=== PATIENT | male | born 1990 | race Caucasian/White ===

== ENCOUNTER 2020-11-23 09:58 | Emergency (ER) | payer BC, MEDICAID ==
--- NOTE | 2020-11-23 11:14 | EDM.PDOC ---
ED HPI GENERAL MEDICAL PROBLEM - General Chief Complaint: Upper Extremity Injury/Pain Stated Complaint: LEFT HAND PAIN Time Seen by Provider: 11/23/20 11:05 Source of Information: Reports: Patient History Limitations: Reports: No Limitations - History of Present Illness INITIAL COMMENTS - FREE TEXT/NARRATIVE: Patient states he punched the dashboard his truck with his right hand yesterday about 8 PM states pain is gotten worse along with the swelling since the incident he rates his pain about a 6 out of 10 states he does have a history of having boxer fractures he denies any numbness or tingling or loss of sensation. Duration: Hour(s): Location: Reports: Upper Extremity, Right Severity: Moderate Improves with: Reports: None Worsens with: Reports: None Right Hand Pain Score (Numeric/FACES): 6 - Related Data Allergies Allergy/AdvReac Type Severity Reaction Status Date / Time pollen extracts Allergy Airway Verified 11/23/20 11:29 Tightness shellfish derived Allergy Anaphylactic Verified 11/23/20 11:29 Shock Home Meds: Home Meds . [No Known Home Meds] 11/23/20 [History] Review of Systems - Review of Systems Review Of Systems: See Below Constitutional: Reports: No Symptoms Cardiovascular: Reports: No Symptoms GI/Abdominal: Reports: No Symptoms Musculoskeletal: Reports: Hand Pain Skin: Reports: No Symptoms Neurological: Reports: No Symptoms Psychiatric: Reports: No Symptoms ED EXAM, GENERAL - Physical Exam Exam: See Below Exam Limited By: No Limitations General Appearance: Alert, WD/WN, No Apparent Distress Back Exam: Full Range of Motion Extremities: Normal Inspection, Normal Range of Motion, Other (Exam to the right hand patient is neurovascular intact strong radius and ulna cap refill patient has diffuse swelling across the third fourth fifth digit with tenderness to palpation across the fourth and fifth knuckle along with axial pain on the fourth and fifth he has positive FDS and FDP with normal extension he has normal abduction adduction and opposition). No: Non-Tender Neurological: Alert, Oriented, CN II-XII Intact, Normal Cognition, Normal Gait, No Motor/Sensory Deficits Psychiatric: Normal Affect, Normal Mood Skin Exam: Warm, Dry, Intact, Normal Color, No Rash Course - Vital Signs Text/Narrative:: A right hand series was ordered Patient has a boxer fracture over the fourth fifth metacarpal patient will be placed in a ulnar gutter splint ismael no OCL of right size splintted by my self recheck after NVI follow up with Ortho. Last Recorded V/S: Last Vital Signs Temp 36.7 C 11/23/20 11:00 Pulse 74 11/23/20 11:00 Resp 16 11/23/20 11:00 BP 117/77 11/23/20 11:00 Pulse Ox 98 11/23/20 11:00 - Orders/Labs/Meds Orders: Active Orders 24 hr Category Date Time Status Hand Comp Min 3V Rt [CR] Stat Exams 11/23/20 11:09 Taken Departure - Departure Time of Disposition: 11:45 Disposition: Home, Self-Care 01 Condition: Good Clinical Impression: Boxers fracture - Discharge Information *PRESCRIPTION DRUG MONITORING PROGRAM REVIEWED*: Not Applicable *COPY OF PRESCRIPTION DRUG MONITORING REPORT IN PATIENT RAFAT: Not Applicable Instructions: Boxer's Fracture Forms: ED Department Discharge Additional Instructions: Return to the emergency room if anything changes or gets worse Follow-up with DR Richard valladares DR tomorrow at 830 at [facility] You may apply ice to the area is much as tolerated usually 1 hour on 1 hour off over the next 3 to 4 days. You may take [id number] Tylenol Motrin as needed follow directions on the box Sepsis Event Note (ED) - Focused Exam Vital Signs: Vital Signs Temp Pulse Resp BP Pulse Ox 11/23/20 11:00 36.7 C 74 16 117/77 98 - Problem List & Annotations (1) Hand injury SNOMED Code(s): 369438203 Code(s): S69.90XA - UNSP INJURY OF UNSP WRIST, HAND AND FINGER(S), INIT ENCNTR Status: Acute (2) Boxers fracture SNOMED Code(s): 82129223 Code(s): S62.339A - DISP FX OF NECK OF UNSP METACARPAL BONE, INIT FOR CLOS FX Status: Acute - My Orders Last 24 Hours: My Active Orders 11/23/20 11:09 Hand Comp Min 3V Rt [CR] Stat - Assessment/Plan Last 24 Hours: My Active Orders 11/23/20 11:09 Hand Comp Min 3V Rt [CR] Stat
--- NOTE | 2020-11-23 11:57 | CR ---
[id number] RAD/RAD Hand Right 3V EXAM: RAD Hand Right 3V INDICATION: PUNCHED DASH IN TRUCK. COMPARISON: None. DISCUSSION: Subacute healing fractures of the fourth and fifth metacarpals. Both fractures demonstrate angulation resulting in shortening. Finding is more prominent in the fifth metacarpal. No dislocation. IMPRESSION: As above. Hector Gar MD 11/23/20 1266 Thank you for allowing us to participate in the care of your patient.
== END 2020-11-23 11:47 | disposition home or self-care (01) ==
LOC: VM.ED 09:58
DX: S62.334A Displaced fracture of neck of fourth metacarpal bone, right hand, initial encounter for closed fracture (principal); S62.336A Displaced fracture of neck of fifth metacarpal bone, right hand, initial encounter for closed fracture; Z91.048 Other nonmedicinal substance allergy status; Z91.013 Allergy to seafood; W22.8XXA Striking against or struck by other objects, initial encounter
CPT/HCPCS: 29125; 73130-RT; 99283; 99283-25

== ENCOUNTER 2020-12-10 19:50 | Emergency (ER) | payer MEDICAID ==
[2020-12-10] MEDS ORDERED: Oxymetazoline 0.05% Nasal Spray 30 ML Bottle NAS ONE (20:10)
[2020-12-10] MEDS ORDERED: predniSONE 20 MG Tab PO ONE (20:10)
--- NOTE | 2020-12-10 20:15 | EDM.PDOC ---
ED HPI GENERAL MEDICAL PROBLEM - General Chief Complaint: ENT Problem Stated Complaint: possible sinus infection Time Seen by Provider: 12/10/20 20:00 Source of Information: Reports: Patient History Limitations: Reports: No Limitations - History of Present Illness INITIAL COMMENTS - FREE TEXT/NARRATIVE: Patient comes emergency department today with complaints of ear pain headache sinus congestion and pressure. This patient for the past 5 to 7 days has had a severe frontal sinus headache pounding with pressure. He has had increased pressure in his ears. Quite a bit of sinus congestion and drainage. No fever no chills. He has tried some Sudafed without relief. No cough or congestion. No difficulty swallowing or breathing. No chest pain shortness of breath or difficulty breathing. No weakness dizziness lightheadedness. No confusion. No recent falls or head trauma. He usually gets a sinus infection once a year he relates. No COVID exposure no COVID symptoms otherwise. Sneezing as well itchy watery eyes and clear drainage from his eyes. Head Pain Score (Numeric/FACES): 9 - Related Data Allergies Allergy/AdvReac Type Severity Reaction Status Date / Time pollen extracts Allergy Airway Verified 11/23/20 11:29 Tightness shellfish derived Allergy Anaphylactic Verified 11/23/20 11:29 Shock Home Meds: Home Meds predniSONE [Prednisone] 60 mg PO DAILY #12 tablet 12/10/20 [Rx] Past Medical History HEENT History: Reports: Allergic Rhinitis - Past Surgical History Musculoskeletal Surgical History: Reports: Shoulder Surgery Social & Family History - Tobacco Use Tobacco Use Status *Q: Current Every Day Tobacco User Years of Tobacco use: 12 Packs/Tins Daily: 0.5 - Recreational Drug Use Recreational Drug Use: No ED ROS ENT - Review of Systems Review Of Systems: Comprehensive ROS is negative, except as noted in HPI. ED EXAM, ENT - Physical Exam Exam: See Below Exam Limited By: No Limitations General Appearance: Alert, WD/WN, No Apparent Distress Eye Exam: Bilateral Eye: Conjunctival Injection, EOMI, PERRL, Other (SClera is injected bilaterally and watery eyes. ) Ears: Normal External Exam, Normal Canal, Hearing Grossly Normal, Normal TMs Nose: Clear Rhinorrhea, Nasal Swelling, Injected Turbinates (His turbinates are very swollen and boggy. There is a large amount of clear rhinorrhea. His nasopharynx is absolutely full of his turbinates.) Mouth/Throat: Normal Inspection, Normal Gums, Normal Lips, Normal Oropharynx, Normal Teeth Head: Atraumatic, Normocephalic Neck: Normal Inspection, Supple, Non-Tender, Full Range of Motion Respiratory/Chest: No Respiratory Distress, Normal Breath Sounds, Chest Non- Tender Cardiovascular: Normal Peripheral Pulses, Regular Rate, Rhythm Extremities: Normal Inspection Neurological: Alert, Oriented, CN II-XII Intact, Normal Cognition, No Motor/Sensory Deficits Psychiatric: Normal Affect, Normal Mood Skin: Warm, Dry, Intact, Normal Color, No Rash Course - Vital Signs Last Recorded V/S: Last Vital Signs Temp 97.1 F 12/10/20 20:00 Pulse 61 12/10/20 20:00 Resp 16 12/10/20 20:00 BP 134/81 12/10/20 20:00 Pulse Ox 97 12/10/20 20:00 - Orders/Labs/Meds Orders: Active Orders 24 hr Category Date Time Status Oxymetazoline [Nasal Decongestant [place]] Med 12/10/20 20:10 Once 1 ml JENNIFER ONETIME ONE predniSONE Med 12/10/20 20:10 Once 60 mg PO ONETIME ONE - Re-Assessments/Exams Free Text/Narrative Re-Assessment/Exam: 12/10/20 20:21 Prednisone 60mg PO Afrin 2 sprays each nostril. Departure - Departure Time of Disposition: 20:11 Disposition: Home, Self-Care 01 Clinical Impression: Acute sinusitis Qualifiers: Sinusitis location: unspecified location Recurrence: not specified as recurrent Qualified Code(s): J01.90 - Acute sinusitis, unspecified - Discharge Information Instructions: Sinusitis, Adult, [id number], How to Perform a Sinus Rinse, [id number] Referrals: PCP,None [Primary Care Provider] - Additional Instructions: Afrin/Oxymetazoline 2 sprays each nostril twice daily for no more than 2 days. DO NOT USE MORE THAN 2 DAYS. 10 minutes later. OTC Nasal rinse like Netti Pot or other OTC nasal rinse. Continue until symptoms resolve and may continue to prevent acute sinusitis as well. 10 minutes later. Flonase, OTC, 1 spray each nostril twice daily for a week and then 1 spray each nostril daily. Continue until symptoms resolve and may continue to prevent symptoms in the future. Make sure and drink plenty of fluids. Prednisone 60mg daily for the next 5 days. First dose given in the ED and RX sent to [facility]. Tylenol and or Ibuprofen as needed for pain. May consider OTC Benadryl and or Zyrctec/Tiffany/Xyzal or systemic symptoms. Return to the ED if new or worsening symptoms. Follow up with PCP in the next 10 days if not improving sooner if worse. Sepsis Event Note (ED) - Evaluation Sepsis Screening Result: No Definite Risk - Focused Exam Vital Signs: Vital Signs Temp Pulse Resp BP Pulse Ox 12/10/20 20:00 97.1 F 61 16 134/81 97 - My Orders Last 24 Hours: My Active Orders 12/10/20 20:10 Oxymetazoline [Nasal Decongestant [place]] 1 ml JENNIFER ONETIME ONE predniSONE 60 mg PO ONETIME ONE - Assessment/Plan Last 24 Hours: My Active Orders 12/10/20 20:10 Oxymetazoline [Nasal Decongestant [place]] 1 ml JENNIFER ONETIME ONE predniSONE 60 mg PO ONETIME ONE
== END 2020-12-10 21:06 | disposition home or self-care (01) ==
LOC: VM.ED 19:50
DX: J01.90 Acute sinusitis, unspecified (principal); Z91.018 Allergy to other foods; Z91.09 Other allergy status, other than to drugs and biological substances; Z72.0 Tobacco use
CPT/HCPCS: 99282; 99283; A9270-GY; J7512

== ENCOUNTER 2021-07-24 00:50 | Emergency (ER) | payer MEDICAID ==
[2021-07-24] MEDS ORDERED: Diphtheria,Pertussis(Acell),Tetanus Vaccine 0.5 ML Syringe IM ONE (01:02)
--- NOTE | 2021-07-24 01:12 | EDM.PDOC ---
ED HPI GENERAL MEDICAL PROBLEM - General Chief Complaint: Laceration Stated Complaint: Laceration Time Seen by Provider: 07/24/21 00:50 Source of Information: Reports: Patient History Limitations: Reports: No Limitations - History of Present Illness INITIAL COMMENTS - FREE TEXT/NARRATIVE: With complaints of a laceration to his right hand. Patient states he was working on a car and his finger slipped and ended up cutting it on a piece of metal. He states he was able to control bleed prior to arrival by manual pressure and a napkin. Patient is unaware of his tetanus status. Patient states he does not have any concerns with range of motion or CMS. He states the finger is tender to touch but does not have any further concerns. Onset: Sudden Duration: Constant Location: Reports: Lower Extremity, Right Quality: Reports: Throbbing Severity: Moderate Improves with: Reports: Rest Worsens with: Reports: Movement Context: Reports: Activity Associated Symptoms: Reports: No Other Symptoms - Related Data Allergies Allergy/AdvReac Type Severity Reaction Status Date / Time pollen extracts Allergy Airway Verified 11/23/20 11:29 Tightness shellfish derived Allergy Anaphylactic Verified 11/23/20 11:29 Shock Home Meds: Home Meds predniSONE [Prednisone] 60 mg PO DAILY #12 tablet 12/10/20 [Rx] Past Medical History HEENT History: Reports: Allergic Rhinitis - Past Surgical History Musculoskeletal Surgical History: Reports: Shoulder Surgery ED ROS GENERAL - Review of Systems Review Of Systems: Comprehensive ROS is negative, except as noted in HPI. Constitutional: Reports: No Symptoms HEENT: Reports: No Symptoms Respiratory: Reports: No Symptoms Cardiovascular: Reports: No Symptoms Endocrine: Reports: No Symptoms GI/Abdominal: Reports: No Symptoms : Reports: No Symptoms Musculoskeletal: Reports: No Symptoms Skin: Reports: No Symptoms Neurological: Reports: No Symptoms Psychiatric: Reports: No Symptoms Hematologic/Lymphatic: Reports: No Symptoms Immunologic: Reports: No Symptoms ED EXAM, SKIN/RASH Exam: See Below Exam Limited By: No Limitations General Appearance: Alert, WD/WN, No Apparent Distress Head: Atraumatic, Normocephalic Respiratory/Chest: No Respiratory Distress, Lungs Clear, Chest Non-Tender Cardiovascular: Normal Peripheral Pulses, Regular Rate, Rhythm, No Edema Extremities: Normal Inspection, Normal Range of Motion, Non-Tender, Normal Capillary Refill Neurological: Alert, Oriented, CN II-XII Intact, Normal Gait Psychiatric: Normal Affect, Normal Mood Skin: Warm, Dry, Intact ED SKIN PROCEDURES - Laceration/Wound Repair Right Anterior Proximal Digit - 3rd (Middle) Appearance: Subcutaneous Distal NVT: Neuro & Vascular Intact, No Tendon Injury Anesthetic Type: Local Local Anesthesia - Lidocaine (Xylocaine): 1% Plain Local Anesthetic Volume: 3cc Skin Prep: Chlorhexidine (Hibiciens), Saline Closed with: Sutures Lac/Wound length In cm: 1 Suture Size: 4-0 # of Sutures: 3 Suture Type: Simple Drain Placement: No Sterile Dressing Applied: Nurse Tetanus Status Addressed: Yes Complications: No Course - Orders/Labs/Meds Orders: Active Orders 24 hr Category Date Time Status Lidocaine 1% [Xylocaine-MPF 1%] Med 07/24/21 01:01 Once 5 ml INJECT ONETIME ONE Departure - Departure Time of Disposition: 01:15 Disposition: Home, Self-Care 01 Condition: Good Clinical Impression: Laceration - Discharge Information *PRESCRIPTION DRUG MONITORING PROGRAM REVIEWED*: Not Applicable *COPY OF PRESCRIPTION DRUG MONITORING REPORT IN PATIENT RAFAT: Not Applicable Instructions: Laceration Care, Adult, Sutures, Haley, or Adhesive Wound Closure, [id number] Additional Instructions: 1. Rest 2. Keep the area clean and dry 3. Can use tylenol and ibuprofen as needed for pain and discomfort 4. Diet as tolerated 5. Activity as tolerated 6. Elevated the injured area above the level of the heart to decrease swelling and discomfort if applicable 7. Can use ice 3-4 times a day at 20-minute intervals to help with any swelling and discomfort 8. Follow-up with your primary care provider symptoms continue or to progress 9. Discharge information has been provided regarding your injury and wound care has been provided 10. Avoid an public pools or hot tubes until wound is healed. 11. Follow up in the Clinic in 10 days for removal of sutures - My Orders Last 24 Hours: My Active Orders 07/24/21 01:01 Lidocaine 1% [Xylocaine-MPF 1%] 5 ml INJECT ONETIME ONE - Assessment/Plan Last 24 Hours: My Active Orders 07/24/21 01:01 Lidocaine 1% [Xylocaine-MPF 1%] 5 ml INJECT ONETIME ONE Assessment:: 1. laceration right hand- 3rd digit Plan: 1. Wound cleansing completed 2. Laceration repair completed 3. Tdap vaccine history completed 4. Education regarding wound care, dressing changes, OTC medications, activity, diet, follow up care and when to seek care if warranted provided 5. Patient is to return to the clinic in 10 days to have sutures site evaluated and removed 6. Patient was encouraged to call or return if any questions or concerns arise.
== END 2021-07-24 01:19 | disposition home or self-care (01) ==
LOC: VM.ED 00:50
DX: S61.212A Laceration without foreign body of right middle finger without damage to nail, initial encounter (principal); Z91.030 Bee allergy status; Z91.09 Other allergy status, other than to drugs and biological substances; Z23 Encounter for immunization; W26.8XXA Contact with other sharp object(s), not elsewhere classified, initial encounter; Y99.0 Civilian activity done for income or pay
CPT/HCPCS: 12001; 90471; 90715; 99282-25; 99283

== ENCOUNTER 2021-10-30 22:54 | Emergency (ER) | payer MEDICAID ==
--- NOTE | 2021-10-30 23:37 | EDM.PDOC ---
ED HPI GENERAL MEDICAL PROBLEM - General Chief Complaint: Upper Extremity Injury/Pain Stated Complaint: BROKEN HAND Time Seen by Provider: 10/30/21 23:22 Source of Information: Reports: Patient History Limitations: Reports: No Limitations - History of Present Illness INITIAL COMMENTS - FREE TEXT/NARRATIVE: Pt. presents to ER with complaints of pain to R hand. Pt. states that he punched a fence post just prior to coming to ER. Pt. has a history of at least 2 previous Boxers fractures in the past, the last being in the spring which showed subacute healing fractures of the hand with deformity and shortening of the metacarpals. Pt. was splinted and has not had any follow-up since that time. Onset Date: 10/30/21 Location: Reports: Upper Extremity, Right - Related Data Allergies Allergy/AdvReac Type Severity Reaction Status Date / Time pollen extracts Allergy Airway Verified 07/24/21 03:49 Tightness shellfish derived Allergy Anaphylactic Verified 07/24/21 03:49 Shock Home Meds: Home Meds . [No Known Home Meds] 07/24/21 [History] Past Medical History HEENT History: Reports: Allergic Rhinitis - Past Surgical History Musculoskeletal Surgical History: Reports: Shoulder Surgery ED ROS GENERAL - Review of Systems Review Of Systems: Comprehensive ROS is negative, except as noted in HPI. ED EXAM, GENERAL - Physical Exam Exam: See Below Exam Limited By: No Limitations General Appearance: Alert, WD/WN, No Apparent Distress Extremities: Joint Swelling, Limited Range of Motion, Other (edema/possible deformity to area of distal metacarpal bone. CMS intact. No crepitus noted.) Course - Vital Signs Last Recorded V/S: Last Vital Signs Temp 36.7 C 10/30/21 23:18 Pulse 81 10/30/21 23:18 Resp 19 10/30/21 23:18 BP 185/94 H 10/30/21 23:18 Pulse Ox 97 10/30/21 23:18 - Orders/Labs/Meds Orders: Active Orders 24 hr Category Date Time Status Hand Comp Min 3V Rt [CR] Stat Exams 10/30/21 23:10 Taken - Radiology Interpretation Free Text/Narrative:: Radiographs of R hand obtained. No obvious acute fracture or dislocation noted. Evidence of chronic deformity noted to 4th and 5th metacarpals from previous injury. Departure - Departure Time of Disposition: 11:43 Disposition: Home, Self-Care Clinical Impression: Hand contusion - Discharge Information Instructions: Hand Contusion, [id number] Referrals: Landen Handley MD [Primary Care Provider] - Forms: ED Department Discharge Additional Instructions: Ice hand for 10-15 min every hour. Keep elevated above heart. Tylenol and ibuprofen as needed for pain. If continuing to have discomfort, follow-up with PCP in 7-10 days. Sepsis Event Note (ED) - Evaluation Sepsis Screening Result: No Definite Risk - Focused Exam Vital Signs: Vital Signs Temp Pulse Resp BP Pulse Ox 10/30/21 23:18 36.7 C 81 19 185/94 H 97 - Problem List Review Problem List Initiated/Reviewed/Updated: Yes - My Orders Last 24 Hours: My Active Orders 10/30/21 23:10 Hand Comp Min 3V Rt [CR] Stat - Assessment/Plan Last 24 Hours: My Active Orders 10/30/21 23:10 Hand Comp Min 3V Rt [CR] Stat Plan: No acute bony deformity noted to hand. Ice hand for 10-15 min every hour. Keep hand elevated above heart. Tylenol and ibuprofen as needed for pain. If continuing to have discomfort, follow-up with PCP in 7-10 days.
--- NOTE | 2021-10-31 09:01 | CR ---
[id number] RAD/RAD Hand Right 3V EXAM: RAD Hand Right 3V INDICATION: PUNCHED FENCEPOST, HISTORY PREVIOUS BOXER FRACTURE. COMPARISON: November 23, 2020. DISCUSSION: Chronic healed fourth and fifth metacarpal fractures. Mild chronic widening of the distal radial ulnar joint space which may relate to chronic ligamentous injury. No acute fracture or dislocation is identified. IMPRESSION: 1. No acute findings. Power Burnett MD 10/31/21 0900 Thank you for allowing us to participate in the care of your patient.
== END 2021-10-30 23:47 | disposition home or self-care (01) ==
LOC: VM.ED 22:54
DX: S60.221A Contusion of right hand, initial encounter (principal); Z91.013 Allergy to seafood; Z91.048 Other nonmedicinal substance allergy status; W22.09XA Striking against other stationary object, initial encounter
CPT/HCPCS: 73130-RT; 99283

== ENCOUNTER 2022-02-10 11:45 | Emergency (ER) | payer MEDICAID ==
[2022-02-11 20:06] LABS: C.TRACHOMATIS BY TMA Negative (Negative); N.GONORRHOEAE BY TMA Negative (Negative)
== END 2022-02-10 13:01 | disposition home or self-care (01) ==
LOC: VM.ED 11:45
DX: M54.50 Low back pain, unspecified (principal); Z91.013 Allergy to seafood; Z88.8 Allergy status to other drugs, medicaments and biological substances; Z72.0 Tobacco use
CPT/HCPCS: 81003; 87491; 87591; 99283

== ENCOUNTER 2022-06-05 10:56 | Emergency (ER) | payer OTHER, MEDICAID | END 2022-06-05 12:05 | disposition home or self-care (01) | LOC: VM.ED 10:56 | DX: S90.31XA Contusion of right foot, initial encounter (principal); Z79.899 Other long term (current) drug therapy; Z91.013 Allergy to seafood; Z91.048 Other nonmedicinal substance allergy status; W26.8XXA Contact with other sharp object(s), not elsewhere classified, initial encounter | CPT/HCPCS: 73620-RT; 99283 ==